=== PATIENT | female | born 1960 | race Caucasian/White ===

== ENCOUNTER 2023-08-17 09:52 | Emergency (ER) | payer BC, OTHER ==
[~2023-08-17] VITALS: Ht 162.6 cm; Wt 67.1 kg
[2023-08-17 10:01] VITALS: TEMP 98.4
[2023-08-17 11:15] VITALS: BP 114/76
[2023-08-17 11:36] VITALS: O2SAT 99
== END 2023-08-17 11:42 | disposition home or self-care (01) ==
LOC: ER 10:03
DX: M25.521 Pain in right elbow (principal); M79.631 Pain in right forearm; E11.9 Type 2 diabetes mellitus without complications; Z88.8 Allergy status to other drugs, medicaments and biological substances
CPT/HCPCS: 73080-TC; 73090-TC

== ENCOUNTER 2023-10-17 18:12 | Emergency (ER) | payer MEDICARE, BC ==
[~2023-10-17] VITALS: Ht 162.6 cm; Wt 68.0 kg
[2023-10-17 19:00] VITALS: BP 96/57; TEMP 98.2
[2023-10-17] MEDS ORDERED: BENZ-13 PO (21:23)
[2023-10-17 21:57] VITALS: O2SAT 98
== END 2023-10-17 21:57 | disposition home or self-care (01) ==
LOC: ER 18:13
DX: J06.9 Acute upper respiratory infection, unspecified (principal); R05.9 Cough, unspecified; E11.9 Type 2 diabetes mellitus without complications; Z88.8 Allergy status to other drugs, medicaments and biological substances
CPT/HCPCS: 71045-TC